=== PATIENT | male | born 1955 | race Two or more races ===

== ENCOUNTER 2021-07-06 09:50 | Emergency (ER) | payer OTHER ==
[~2021-07-06] VITALS: Ht 167.6 cm; Wt 83.9 kg
== END 2021-07-06 13:55 | disposition home or self-care (01) ==
LOC: ER 09:50
DX: N39.0 Urinary tract infection, site not specified (principal)

== ENCOUNTER 2022-05-12 05:56 | Emergency (ER) | payer OTHER ==
[~2022-05-12] VITALS: Ht 167.6 cm; Wt 83.9 kg
[2022-05-12] MEDS ORDERED: DICLOFENAC POTA50 MG PO (07:38)
[2022-05-12] MEDS ORDERED: MEDROLPACK PO (07:38)
== END 2022-05-12 07:41 | disposition home or self-care (01) ==
LOC: ER 05:56
DX: M25.572 Pain in left ankle and joints of left foot (principal)